=== PATIENT | female | born 1980 | race Caucasian/White ===

== ENCOUNTER → 2017-07-15 | Outpatient (CLI) | payer OTHER ==
--- NOTE | 2017-07-16 08:37 | WOMENS IMAGING REPORT ---
EXAM DESCRIPTION: 3D SCREENING MAMMO BILAT COMPLETED DATE/TIME: 07/15/2017 7:16 am REASON FOR STUDY: SCREENING MAMMO Z12.31 ENCNTR SCREEN MAMMOGRAM FOR MALIGNANT NEOPLASM OF JASMIN COMPARISON: Baseline study TECHNIQUE: Standard craniocaudal and mediolateral oblique views of each breast recorded using digita l acquisition and breast tomosynthesis. LIMITATIONS: None. FINDINGS: No masses, calcifications or architectural distortion. No areas of suspicion. Read with the assistance of CAD. .[facility] - R2 Cenova Version 1.3 .[facility] - R2 Cenova Version 1.3 .[facility] - R2 Cenova Version 2.4 .[facility] [place] - R2 Cenova Version 2.4 .[facility] - R2 Fundraising Sale Representative Version 9.2 IMPRESSION: NORMAL MAMMOGRAM. BIRADS 1. BREAST DENSITY: d. The breasts are extremely dense, which lowers the sensitivity of mammography. BIRAD: 1 NEGATIVE RECOMMENDATION: ROUTINE SCREENING Please continue yearly bilateral screening tomosynthesis in July 2018 COMMENT: The patient has been notified of the results by letter per SA requirements. Additional no tification policies are in place for contacting patient with suspicious or incomplete findings. Quality ID #[id number]: The [employer] recommends an annual screening mammogram for women aged 40 years or over. This facility utilizes a reminder system to ensure that all patients receive reminder letters, and/or direct phone calls for appointments. This includes reminders for routine scr eening mammograms, diagnostic mammograms, or other Breast Imaging Interventions when appropriate. Th is patient will be placed in the appropriate reminder system. The [employer] (ACR) has developed recommendations for screening MRI of the breast s in certain patient populations, to be used in conjunction with mammography. Breast MRI surveillanc e may be appropriate for women with more than 20% lifetime risk of developing breast cancer as deter mined by genetic testing, significant family history of the disease, or history of mantle radiation f or Hodgkins Disease. ACR Practice Guidelines 2008. DBT Technology DBT is a type of tomographic mammography. With conventional mammography, overlapping breast tissue ma y make lesions difficult to detect, even with good compression. DBT uses an x-ray tube that rotates a round the breast, taking images at different angles. These images are then combined to create thin sl ices of the breast that the radiologist can view as a 3D reconstruction. The [employer] unit can perform full-field digital mammograms (2D imaging); or DBT (3D imaging); or both, in a combination mode that quickly performs both the mammogram and the tomosynthesis scan while the breast is still compressed. PQRS 6045F: Fluoroscopic imaging is not utilized for breast tomosynthesis. TECHNICAL DOCUMENTATION: FINDING NUMBER: (1) ASSESSMENT: (1) JOB ID: [id number] [employer]- All Rights Reserved Reading location - IP/workstation name: [email or web address]
== END ==
LOC: WI 06:59
PROVIDERS: ATTEND Internal Medicine
DX: Z12.31 Encounter for screening mammogram for malignant neoplasm of breast (principal)
CPT/HCPCS: 77063; 77067

== ENCOUNTER 2018-07-18 15:35 | Outpatient (CLI) | payer OTHER ==
--- NOTE | 2018-07-18 17:09 | Non Stress Test Report ---
Non Stress Test Datetime Report Generated by CPN: 07/18/2018 17:09 DEMOGRAPHIC Test Number: 1 EGA NST: 37.3 INDICATION Indication for Study: Ordered by Provider MONITORING Monitor Explained: Monitor Explained; Test Explained; Patient Verbalized Understanding Time on Monitor: 07/18/2018 15:50 Time off Monitor: 07/18/2018 17:00 NST Duration: 70 NST INTERVENTIONS NST Interventions: PO Hydration; Reposition Patient Physician Notified NST: Dr Gil BABY A: [id number] BABY A Movement : Present Contraction Frequency : Irregular FHR Baseline : 130 Accelerations : 15X15 Decelerations : None Variability : Moderate 6-25bpm NST Review: Meets Criteria for Reactive NST NST Review and Verified By : Charlotte Bestavarosa maria RN NST Results: Reactive NST REPORT Report Trigger: Send Report
== END 2018-07-18 17:13 | disposition home or self-care (01) ==
LOC: LC 15:35
PROVIDERS: ATTEND Obstetrics & Gynecology
PROC: 4A1HXCZ Monitoring of Products of Conception, Cardiac Rate, External Approach (ICD-10-PCS; principal; 2018-07-18)
DX: O16.3 Unspecified maternal hypertension, third trimester (principal); O09.523 Supervision of elderly multigravida, third trimester; Z3A.37 37 weeks gestation of pregnancy
CPT/HCPCS: 59025

== ENCOUNTER 2018-07-26 21:00 | Inpatient (IN) | payer OTHER ==
[2018-07-26] MEDS ORDERED: OXYTOCIN 10 UNIT/ML VIAL ONE (21:18)
[2018-07-26] MEDS ORDERED: MISOPROSTOL 0.2 MG TABLET ONE (21:19)
[2018-07-26] MEDS ORDERED: LIDOCAINE 1% INJ-PF (10 MG/ML) 30 ML SDV ONE (21:19)
[2018-07-26] MEDS ORDERED: OXYTOCIN/NORMAL SALINE 20 UNIT/1,000 ML RTUINJ ONE (21:19)
[2018-07-26 21:28] LABS: APPEARANCE,URINE SLIGHTLY-CLOUDY; BILIRUBIN,URINE NEGATIVE (NEGATIVE); COLOR,URINE YELLOW; GLUCOSE, URINE 50 mg/dL (NEGATIVE); KETONES,URINE NEGATIVE (NEGATIVE); LEUKOCYTE ESTERASE,URINE SMALL (NEGATIVE); NITRITE,URINE NEGATIVE (NEGATIVE); PROTEIN,URINE NEGATIVE (NEGATIVE); URINE SPECIFIC GRAVITY 1.011; UROBILINOGEN,URINE NEGATIVE mg/dL (<2.0)
[2018-07-26] MEDS ORDERED: RINGERS SOLUTION,LACTATED 1,000 ML IV PRN (21:34)
[2018-07-26 21:42] LABS: URINE AMPHETAMINES SCREEN NEGATIVE; URINE BARBITURATES SCREEN NEGATIVE; URINE BENZODIAZEPINES SCREEN NEGATIVE; URINE COCAINE SCREEN NEGATIVE; URINE MARIJUANA (THC) SCREEN NEGATIVE; URINE METHADONE SCREEN NEGATIVE; URINE PHENCYCLIDINE SCREEN NEGATIVE
[2018-07-26] MEDS ORDERED: BUPIVACAINE HCL 0.25 % INJ/PF (2.5 MG/1 ML) 30 ML VIAL ONE (21:47)
[2018-07-26] MEDS ORDERED: EPHEDRINE SULFATE INJ 50 MG/1 ML AMPULE ONE (21:47)
[2018-07-26] MEDS ORDERED: FENTANYL/BUPIVACAINE/NS/PF 300 MCG/150 ML RTUINJ EPI ONE (21:47)
[2018-07-26 22:13] LABS: ABSOLUTE EOSINOPHILS # (AUTO) 0.1 10^3/uL (0.0-0.6); ABSOLUTE LYMPHOCYTES (AUTO) 3.3 10^3/uL (0.5-4.7); ABSOLUTE MONOCYTES (AUTO) 1.5 10^3/uL (0.1-1.4); BASOPHILS % (AUTO) 0.2 % (0-2); EOSINOPHILS % (AUTO) 0.7 % (0-6); HEMATOCRIT 34.8 % (36.0-47.0); HEMOGLOBIN 11.9 g/dL (12.0-15.5); LYMPHOCYTES % (AUTO) 20.6 % (13-45); MEAN CORPUSCULAR HEMOGLOBIN 31.1 pg (27.0-33.4); MEAN CORPUSCULAR HGB CONC 34.3 g/dL (32.0-36.0); MEAN CORPUSCULAR VOLUME 91 fl (80-97); MONOCYTES % (AUTO) 9.5 % (3-13); PLATELET COUNT 193 10^3/uL (150-450); RED BLOOD COUNT 3.83 10^6/uL (3.72-5.28); RED CELL DISTRIBUTION WIDTH 13.4 % (11.5-14.0); TOTAL CELLS COUNTED % (AUTO) 100 %; WHITE BLOOD COUNT 15.9 10^3/uL (4.0-10.5)
--- NOTE | 2018-07-26 22:30 | Admission Physical ---
Datetime Report Generated by CPN: 07/26/2018 22:30 CURRENT ADMISSION Chief Complaint: Uterine Contractions Chief Complaint Other: Painful contractions Admit Impression : Term, Intrauterine ; Active Labor Admit Plan: Admit to Unit; Initiate Labor Protocol ALLERGIES Medication Allergies: Yes Medication Allergies: Sulfa (Sulfonamide Antibiotics)/Nausea (07/18/2018) Latex: No Latex Allergies Food Allergies: Crab Environmental Allergies: Pollen OBSTETRICAL HISTORY EDC: 08/05/2018 00:00 : 2 Para: 1 Term: 1 Ectopic: 0 Livin Cesareans: 0 VBACs: 0 Multiple Births: 0 Gestational Diabetes: No Rh Sensitization: No Incompetent Cervix: No STEPHANIE: No Infertility: Yes ART Treatment: No Uterine Anomaly: No IUGR: No Hx Previous C/S: No Macrosomia: No Hx Loss/Stillborn: No PIH: No Hx : No Placenta Previa/Abruption: No Depression/PP Depression: No PTL/PROM: No Post Hemorrhage: No Current Procedures: Ultrasound; NST Obstetrical History Comments: G1- 2014, , Pre eclampcia. G2- Current SEE RECORDS Alcohol: No Marijuana : No Other Illicit Drugs: No Cigarettes: Former Smoker. [id number] MEDICAL HISTORY Diabetes: No Blood Transfusion: No Pulmonary Disease (Asthma, TB): No Breast Disease: Yes Hypertension: Yes Finance Professional Surgery: No Heart Disease: Yes Hosp/Surgery: Yes Autoimmune Disorder: No Anesthetic Complications: No Kidney Disease: No Abnormal Pap Smear: Yes Neuro/Epilepsy: No Psychiatric Disorders: No Other Medical Diseases: No Hepatitis/Liver Disease: No Significant Family History: No Varicosities/Phlebitis: No Trauma/Violence : No Thyroid Dysfunction: No Medical History Comments: Heart murmur, Right breast lumpectomy 2009, Abnormal Pap 2002 INFECTIOUS HISTORY Gonorrhea: No Genital Herpes: No Chlamydia: No Tuberculosis: No Syphilis: No Hepatitis: No HIV/AIDS Exposure: No Rash or Viral Illness: No HPV: No PHYSICAL EXAM General: Normal HEENT: Normal Neurologic: Normal Thyroid: Deferred Heart: Normal Lungs: Normal Breast: Deferred Back: Normal Abdomen: Normal Genitourinary Exam: Normal Extremities: Normal DTRs: Normal Pelvic Type: Adequate Vital Signs: Reviewed; Within Normal Limits VAGINAL EXAM Contraction Comments: 2 mins MEMBRANES Membranes: Intact FETUS A EGA: 38.4 Monitoring: External US FHR- Baseline: 140 Variability: Moderate 6-25bpm Accelerations: 15X15 Decelerations: None FHR Category: Category I Presentation: Vertex Admit Comment: Patient presents to labor and delivery with complaints of painful uterine contractions. Patient reports good fm, no vb, no lof. Pt states her first labor was 1.5hrs with ruputure. Patient desires an epidural. Will not examine until after epidural or unless patient has a overwhelming urge to push. PLANS FOR LABOR AND DELIVERY Labor and Delivery: None Pain Management: Epidural Feeding Preference: Formula Benefit of Breast Feed Discussed: Yes Circumcision: N/A INFORMED CONSENT Signature: with User ID: [email or web address]
[2018-07-26] MEDS ORDERED: ACETAMINOPHEN WITH CODEINE #3 TABLET PO PRN ×2 (23:48)
[2018-07-26] MEDS ORDERED: MEASLES,MUMPS&RUBELLA VACC/PF 0.5 ML VIAL SUBCUT PRN (23:48)
[2018-07-26] MEDS ORDERED: GLYCERIN/WITCH HAZEL LEAF 1 EACH MED..PAD TP PRN (23:48)
[2018-07-26] MEDS ORDERED: DIBUCAINE 1% OINTMENT 56 GM TP PRN (23:48)
[2018-07-26] MEDS ORDERED: NA PHOS,M-B/NA PHOS,DI-BA (ADULT) 133 ML ENEMA PR PRN (23:48)
[2018-07-26] MEDS ORDERED: PROMETHAZINE HCL INJ 25 MG/1 ML VIAL IV PRN (23:48)
[2018-07-26] MEDS ORDERED: PROMETHAZINE HCL 25 MG SUPP.RECT PR PRN (23:48)
[2018-07-26] MEDS ORDERED: OXYTOCIN/NORMAL SALINE 20 UNIT/1,000 ML RTUINJ IV PRN (23:48)
[2018-07-26] MEDS ORDERED: PSEUDOEPHEDRINE HCL 30 MG TABLET PO PRN (23:48)
[2018-07-26] MEDS ORDERED: ACETAMINOPHEN 650 MG SUPP.RECT PR PRN (23:48)
[2018-07-26] MEDS ORDERED: ZOLPIDEM TARTRATE 5 MG TABLET PO PRN (23:48)
[2018-07-26] MEDS ORDERED: DIPH/PERTUSS(ACELL)/TETANUS VAC/PF 0.5 ML SYR (>=10YO) IM PRN (23:48)
[2018-07-26] MEDS ORDERED: MAGNESIUM HYDROXIDE SUSP 30 ML UDCUP PO PRN (23:48)
[2018-07-26] MEDS ORDERED: BENZOCAINE/MENTHOL AEROSOL SPRAY 56 ML TOP PRN (23:48)
[2018-07-26] MEDS ORDERED: PROMETHAZINE HCL 25 MG TABLET PO PRN (23:48)
[2018-07-26] MEDS ORDERED: DIPHENHYDRAMINE HCL 25 MG CAPSULE PO PRN (23:48)
[2018-07-27] MEDS ORDERED: IBUPROFEN 800 MG TABLET ONE (01:41)
[2018-07-27] MEDS: FAMOTIDINE 20 MG TABLET PO SCH ×3 (03:30→21:18)
[2018-07-27] MEDS ORDERED: IBUPROFEN 800 MG TABLET PO SCH (06:00)
[2018-07-27] MEDS ORDERED: BUTALB/ACETAMINOPHEN/CAFFEINE 1 TAB EACH PO ONE (07:00)
[2018-07-27 07:19] LABS: HEMATOCRIT 35.4 % (36.0-47.0); MEAN CORPUSCULAR HGB CONC 33.9 g/dL (32.0-36.0); MEAN CORPUSCULAR VOLUME 92 fl (80-97); PLATELET COUNT 178 10^3/uL (150-450); RED BLOOD COUNT 3.86 10^6/uL (3.72-5.28); RED CELL DISTRIBUTION WIDTH 13.2 % (11.5-14.0); WHITE BLOOD COUNT 21.5 10^3/uL (4.0-10.5)
[2018-07-27] MEDS: SENNOSIDES/DOCUSATE 8.6-50 MG 1 EACH TABLET PO SCH (09:22)
[2018-07-27] MEDS: IBUPROFEN 800 MG TABLET PO SCH ×2 (09:22→17:08)
[2018-07-27] MEDS: PRENATAL VITAMIN W DHA CAPSULE PO SCH (09:22)
[2018-07-27] MEDS: FERROUS SULFATE 325 MG TABLET PO SCH ×2 (09:22→17:08)
[2018-07-27] MEDS: DOCUSATE SODIUM 100 MG CAPSULE PO SCH ×2 (09:22→17:08)
--- NOTE | 2018-07-27 10:36 | PDOC PROGRESS REPORT ---
Subjective-OB Progress Note for:: 07/27/18 Subjective: Pt doing well, no concerns. She reports light bleeding, reg diet and voiding without difficulty. Physical Exam (OB) Vital Signs: Temp Pulse Resp BP Pulse Ox 98.2 F 89 16 124/61 99 07/27/18 08:10 07/27/18 08:10 07/27/18 08:10 07/27/18 08:10 07/27/18 08:10 Intake & Output 07/26/18 07/27/18 07/28/18 06:59 06:59 06:59 Intake Total 240 Balance 240 - PIH/Pre-Eclampsia Headache: Absent Epigastric Pain: No Visual Changes: No - Lochia Lochia Amount: Scant < 10 ml Lochia Color: Rubra/Red - Abdomen Description: Tender, Soft, Round Hernia Present: No Fundal Description: Firm, Midline Fundal Height: u/u - u/2 Objective-Diagnostic Laboratory: 07/27/18 06:34 07/26/18 07/26/18 07/26/18 21:09 21:54 21:54 WBC 15.9 H RBC 3.83 Hgb 11.9 L Hct 34.8 L MCV 91 MCH 31.1 MCHC 34.3 RDW 13.4 Plt Count 193 Seg Neutrophils % 69.0 Lymphocytes % 20.6 Monocytes % 9.5 Eosinophils % 0.7 Basophils % 0.2 Absolute Neutrophils 11.0 H Absolute Lymphocytes 3.3 Absolute Monocytes 1.5 H Absolute Eosinophils 0.1 Absolute Basophils 0.0 Urine Color YELLOW Urine Appearance SLIGHTLY-CLOUDY Urine pH 7.0 Ur Specific [place] 1.011 Urine Protein NEGATIVE Urine Glucose (UA) 50 H Urine Ketones NEGATIVE Urine Blood SMALL H Urine Nitrite NEGATIVE Ur Leukocyte Esterase SMALL H Blood Type O POSITIVE Antibody Screen NEGATIVE 07/27/18 06:34 WBC 21.5 H RBC 3.86 Hgb 12.0 Hct 35.4 L MCV 92 MCH 31.0 MCHC 33.9 RDW 13.2 Plt Count 178 Seg Neutrophils % Lymphocytes % Monocytes % Eosinophils % Basophils % Absolute Neutrophils Absolute Lymphocytes Absolute Monocytes Absolute Eosinophils Absolute Basophils Urine Color Urine Appearance Urine pH Ur Specific [place] Urine Protein Urine Glucose (UA) Urine Ketones Urine Blood Urine Nitrite Ur Leukocyte Esterase Blood Type Antibody Screen Assessment and Plan(PN) - Assessment and Plan (1) Chronic hypertension Is this a current diagnosis for this admission?: Yes (2) Delivery normal Is this a current diagnosis for this admission?: Yes - Time Spent with Patient Time with patient: Less than 15 minutes Medications reviewed and adjusted accordingly: Yes - Disposition Anticipated Discharge: Home Within: within 24 hours
[2018-07-28] MEDS: IBUPROFEN 800 MG TABLET PO SCH ×2 (01:03→09:56)
[2018-07-28 07:37] LABS: HEMATOCRIT 36.5 % (36.0-47.0); HEMOGLOBIN 12.4 g/dL (12.0-15.5); MEAN CORPUSCULAR VOLUME 91 fl (80-97); PLATELET COUNT 184 10^3/uL (150-450); RED BLOOD COUNT 4.01 10^6/uL (3.72-5.28); RED CELL DISTRIBUTION WIDTH 13.5 % (11.5-14.0); WHITE BLOOD COUNT 13.9 10^3/uL (4.0-10.5)
[2018-07-28 08:21] LABS: ABSOLUTE LYMPHOCYTES# (MANUAL) 2.6 10^3/uL (0.5-4.7); ABSOLUTE MONOCYTES # (MANUAL) 1.1 10^3/uL (0.1-1.4); ABSOLUTE NEUTROPHILS# (MANUAL) 10.1 10^3/uL (1.7-8.2); BAND NEUTROPHILS % (MANUAL) 1 % (3-5); BASOPHILS % (MANUAL) 0 % (0-2); EOSINOPHILS % (MANUAL) 0 % (0-6); LYMPHOCYTES % (MANUAL) 15 % (13-45); MONOCYTES % (MANUAL) 8 % (3-13); SEGMENTED NEUTROPHILS % (MAN) 72 % (42-78); TOTAL CELLS COUNTED 100
[2018-07-28 08:22] LABS: OVALOCYTES SLIGHT; PLATELET COMMENT ADEQUATE; POIKILOCYTOSIS SLIGHT; TEAR DROP CELLS SLIGHT
--- NOTE | 2018-07-28 09:38 | PDOC DISCHARGE SUMMARY ---
Final Diagnosis Discharge Date: 07/28/18 - Day#2, doing well, denies fever, chills, malaise, hx of elevated WBC yesterday but back down to 13 today. O+, rubella Immune, bottlefeeding - Final Diagnosis (1) Anemia Is this a current diagnosis for this admission?: Yes (2) Chronic hypertension Is this a current diagnosis for this admission?: Yes (3) Delivery normal Is this a current diagnosis for this admission?: Yes (4) Is this a current diagnosis for this admission?: Yes Discharge Data - Discharge Medication Home Medications: Prenat 115/Iron Fum/Folic/Dss [ 19 Tablet] 1 tab PO DAILY 01/13/15 Aspirin [Aspirin 81 mg Chewable Tablet] 81 mg PO DAILY 07/18/18 Docusate Sodium [Colace] 100 mg PO DAILY 07/18/18 Reason(s) for Admission: Onset of Labor Admission Note: Pre-eclampsia Procedures: Ultrasound Intrapartum Procedure(s): Spontaneous Vaginal Delivery - Diagnosis Test Laboratory: Temp Pulse Resp BP Pulse Ox 98.1 F 85 18 114/77 99 07/28/18 07:21 07/28/18 07:21 07/28/18 07:21 07/28/18 07:21 07/28/18 07:21 07/26/18 07/26/18 07/27/18 21:09 21:54 06:34 RBC 3.83 3.86 Hgb 11.9 L 12.0 Hct 34.8 L 35.4 L Urine Opiates Screen NEGATIVE 07/28/18 07:13 RBC 4.01 Hgb 12.4 Hct 36.5 Urine Opiates Screen - Discharge information/Instructions Discharge Activity: Activity As Tolerated, No Lifting Over 10 Pounds, Pelvic Rest Discharge Diet: As Tolerated, Regular Disposition: HOME, SELF-CARE Follow up with: [facility] in: 1 - for BP check, Weeks
[2018-07-28] MEDS: DOCUSATE SODIUM 100 MG CAPSULE PO SCH (09:56)
[2018-07-28] MEDS: FERROUS SULFATE 325 MG TABLET PO SCH (09:56)
[2018-07-28] MEDS: SENNOSIDES/DOCUSATE 8.6-50 MG 1 EACH TABLET PO SCH (09:57)
[2018-07-28] MEDS: PRENATAL VITAMIN W DHA CAPSULE PO SCH (09:57)
[2018-07-28] MEDS: FAMOTIDINE 20 MG TABLET PO SCH (10:04)
[2018-07-28 10:11] VITALS: BP 124/61
--- NOTE | 2018-08-01 09:01 | Delivery Summary ---
Del Sum A-C Datetime Report Generated by CPN: 08/01/2018 09:00 DELIVERY PERSONNEL DELIVERY PERSONNEL: [id number] Delivery Doctor:: Edie Barbour MD Delivery Doctor:: Edie Barbour MD Labor and Delivery Nurse:: Emma Man RN Labor and Delivery Nurse:: Emma Man RN Labor and Delivery Nurse:: Donna Jeter RN Labor and Delivery Nurse:: Donna Jeter RN Care Transition Mgr/MATERIAL HANDLER 2ND SHIFT: Carole Rabago, CAR REPAIRER MATERNAL INFORMATION Delivery Anesthesia: Epidural Medications After Delivery: Pitocin Drip 20 Units/1000ml NSS Estimated Blood Loss (ml): 200 Maternal Complications: None Provider Comments: Patient with intense rectal pressure and urge to push, pt commenced pushing. Viable female infant delivered over an intact perineum. After delivery suctioned and placed on mom's abdomen. Cord was eventually clamped and cut. Cord blood was collected. With signs of placental separation and large dark clot delivered followed by the spontaneous delivery of a normal intact placenta with 3VC. The lower uterine segment and vagina was explored and all clots and debri was cleared. The patient was cleansed and pads were changed. The patient and tolerated the procedure well. Mom and were left bonding at the end of procedure. LABOR SUMMARY EDC: 08/05/2018 00:00 No. Babies in Womb: 1 Attempted: No Labor Anesthesia: Epidural LABOR INFORMATION Reason for Induction: Not Applicable Onset of Labor: 07/26/2018 18:00 Complete Dilatation: 07/26/2018 23:29 Oxytocin: N/A Group B Beta Strep: negative Antibiotics # of Doses: N/A Antibiotics Time of Last Dose: N/A Name of Antibiotic Given: N/A Steroids Given: None Reason Steroids Not Administered: Not Applicable MEMBRANES Membranes Rupture Method: Spontaneous Rupture of Membranes: 07/26/2018 22:56 Length of Rupture (hr): 0.62 Amniotic Fluid Color: Clear Amniotic Fluid Amount: Moderate Amniotic Fluid Odor: Normal STAGES OF LABOR Stage 1 hr: 5 Stage 1 min: 29 Stage 2 hr: 0 Stage 2 min: 4 Stage 3 hr: 0 Stage 3 min: 3 Total Time in Labor hr: 5 Total Time in Labor min: 36 VAGINAL DELIVERY Episiotomy: None Laceration #1: None Laceration Extension #1: N/A Laceration Repair: Not Applicable Sponge Count Correct: N/A Sharps Count Correct: N/A CSECTION DELIVERY Primary Indication: N/A Secondary Indication: N/A CSection Incidence: N/A Labor: N/A Elective: N/A CSection Incision: N/A BABY A INFORMATION Infant Delivery Date/Time: 07/26/2018 23:33 Method of Delivery: Vaginal Method of Delivery: Vaginal Born in Route : No : N/A Forceps: N/A Vacuum Extraction: N/A Shoulder Dystocia : No PRESENTATION/POSITION BABY A Presentation: Cephalic Cephalic Presentation: Vertex Vertex Position: Left Occipital Anterior Breech Presentation: N/A PLACENTA INFORMATION BABY A Placenta Delivery Time : 07/26/2018 23:36 Placenta Method of Delivery: Spontaneous Placenta Method of Delivery: Spontaneous Placenta Status: Delivered SCORES BABY A Heart Rate 1 min: >100 bpm Resp Effort 1 min: Good Cry Reflex Irritability 1 min: Cough or Sneeze or Pulls Away Muscle Tone 1 min: Active Motion Color 1 min: Body [place], Extremities Blue Resuscitation Effort 1 min: Tactile Stimulation SCORE 1 MIN: 9 Heart Rate 5 min: >100 bpm Resp Effort 5 min: Good Cry Reflex Irritability 5 min: Cough or Sneeze or Pulls Away Muscle Tone 5 min: Active Motion Color 5 min: Body [place], Extremities Blue Resuscitation Effort 5 min: Tactile Stimulation; Oxygen SCORE 5 MIN: 9 INFANT INFORMATION BABY A Gestational Age at Delivery: 38.4 Gestational Status: Early Term- 37- 38.6 Weeks Infant Outcome : Liveborn Condition : Stable Sex: Female Sex: Female IDENTIFICATION BABY A Verification Date/Time: 07/27/2018 00:20 ID Band Number: [id number] Mother's Name Verified: Yes Infant RN Verifying Infant: Donovan, A. RN Additional Verifying Personnel: KJackelyn Boudreaux, RN WEIGHT/LENGTH BABY A Birthweight (gm): 2730 Infant Weight (lb): 6 Infant Weight (oz): 0 Infant Length (in): 19.49 Infant Length (cm): 49.50 CORD INFORMATION BABY A No. Cord Vessels: 3 Nuchal Cord : N/A Cord Blood Taken: Yes-For Eval (Mom's Blood Type - or O+) Infant Suction: Mouth; Nose ASSESSMENT BABY A Infant Complications: None Physical Findings- Other: See full nursery poultry grader. Infant Respirations: Appears Normal Skin to Skin: Yes Care By: Pj Stone RN Transferred To: Remains with Mother BABY B INFORMATION : N/A SIGNATURES Signature: with User ID: [email or web address]
== END 2018-07-28 12:00 | disposition home or self-care (01) | DRG 807 ==
LOC: LC 21:00 → LR 21:25 → 2S 07-27 02:13
PROVIDERS: ADMIT Obstetrics & Gynecology; ATTEND Obstetrics & Gynecology
PROC: 10E0XZZ Delivery of Products of Conception, External Approach (ICD-10-PCS; principal; 2018-07-26)
PROC: 4A1HXCZ Monitoring of Products of Conception, Cardiac Rate, External Approach (ICD-10-PCS; 2018-07-26)
DX: O11.4 Pre-existing hypertension with pre-eclampsia, complicating childbirth (principal); Z37.0 Single live birth; O99.02 Anemia complicating childbirth; D64.9 Anemia, unspecified; Z88.2 Allergy status to sulfonamides; Z91.013 Allergy to seafood; Z87.891 Personal history of nicotine dependence; Z3A.38 38 weeks gestation of pregnancy
CPT/HCPCS: 36415; 59025; 80307; 81005; 85025; 85027; 86592; 86850; 86900; 86901; J2590; J3010; J3490

== ENCOUNTER → 2019-09-09 | Outpatient (CLI) | payer OTHER ==
--- NOTE | 2019-09-09 13:22 | WOMENS IMAGING REPORT ---
EXAM DESCRIPTION: 3D SCREENING MAMMO BILAT IMAGES COMPLETED DATE/TIME: 09/09/2019 8:41 am REASON FOR STUDY: Z12.31 SCREENING MAMMO Z12.31 ENCNTR SCREEN MAMMOGRAM FOR MALIGNANT NEOPLASM OF B RE COMPARISON: 2018 EXAM PARAMETERS: Views: Standard craniocaudal and mediolateral oblique views of each breast recorded using digital acquisition and breast tomosynthesis. Read with the assistance of CAD. .[facility] - [employer] Custodial Officer Version 9.2 LIMITATIONS: None. FINDINGS: No suspicious masses, suspicious calcifications or architectural distortion. No areas of c oncern. IMPRESSION: NEGATIVE MAMMOGRAM. BIRADS 1. BREAST DENSITY: d. The breasts are extremely dense, which lowers the sensitivity of mammography. BIRAD: ASSESSMENT: 1 NEGATIVE RECOMMENDATION: ROUTINE SCREENING COMMENT: The patient has been notified of the results by letter per MQSA requirements. Additional no tification policies are in place for contacting patient with suspicious or incomplete findings. Quality ID #[id number]: The [employer] recommends an annual screening mammogram for women aged 40 years or over. This facility utilizes a reminder system to ensure that all patients receive reminder letters, and/or direct phone calls for appointments. This includes reminders for routine scr eening mammograms, diagnostic mammograms, or other Breast Imaging Interventions when appropriate. Th is patient will be placed in the appropriate reminder system. TECHNICAL DOCUMENTATION: FINDING NUMBER: (1) ASSESSMENT: (1) JOB ID: [id number] 2010 [employer]- All Rights Reserved Reading location - IP/workstation name: [email or web address]
== END ==
LOC: WI 08:20
PROVIDERS: ATTEND Physician Assistant
DX: Z12.31 Encounter for screening mammogram for malignant neoplasm of breast (principal); Z80.3 Family history of malignant neoplasm of breast; Z15.01 Genetic susceptibility to malignant neoplasm of breast
CPT/HCPCS: 77063; 77067